=== PATIENT | female | born 1950 | race Caucasian/White ===

== ENCOUNTER 2020-04-01 18:45 | Emergency (ER) | payer OTHER ==
[~2020-04-01] VITALS: Ht 160 cm; Wt 72.6 kg
[2020-04-01 19:26] VITALS: BP 122/64
--- NOTE | 2020-04-01 19:28 | NUR ---
PT TRIAGED AND IN THE TENT.
[2020-04-01] MEDS ORDERED: NACL 0.9% 500 ML IV SCH (19:34)
--- NOTE | 2020-04-01 19:41 | NUR ---
PT LWBS AT 89
[2020-04-01 20:01] VITALS: BP 122/64
--- NOTE | 2020-04-01 20:02 | NUR ---
PATIENT LEFT WITHOUT BEING SEEN BY DR. HIGH. NO FURTHER CARE PROVIDED FOR PATIENT.
== END 2020-04-01 19:41 | disposition left against medical advice (07) ==
LOC: MED 18:45
DX: R05 Cough (principal); R50.9 Fever, unspecified; R51 Headache; M79.10 Myalgia, unspecified site; Z53.21 Procedure and treatment not carried out due to patient leaving prior to being seen by health care provider